=== PATIENT | male | born 1990 | race Caucasian/White ===

== ENCOUNTER 2018-05-13 18:20 | Emergency (ER) | payer BC, SELFPAY ==
[2018-05-13 18:23] VITALS: BP 128/74; PULSE 75; RESP 16; TEMP 37.4; O2SAT 99
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
[2018-05-13 19:39] VITALS: BP 139/85; PULSE 86; RESP 18; TEMP 37; O2SAT 98
== END 2018-05-13 19:48 | disposition home or self-care (01) ==
PROVIDERS: Emergency Provider Emergency Medicine
DX: S06.0X1A Concussion with loss of consciousness of 30 minutes or less, initial encounter (principal); S16.1XXA Strain of muscle, fascia and tendon at neck level, initial encounter; V18.0XXA Pedal cycle driver injured in noncollision transport accident in nontraffic accident, initial encounter; Y93.55 Activity, bike riding
CPT/HCPCS: 99284; 70450; 72125